=== PATIENT | female | born 1970 | race Asian ===

== ENCOUNTER 2017-11-20 10:01 | Emergency (ER) | payer MEDICAID ==
[~2017-11-20] VITALS: Ht 160 cm; Wt 72.6 kg
[2017-11-20 10:25] VITALS: BP 140/84
[2017-11-20] MEDS ORDERED: KETOROLAC TROMETH 60MG/2ML VIAL IM ONE (10:30)
== END 2017-11-20 12:17 | disposition home or self-care (01) ==
LOC: ER 10:07
DX: K08.89 Other specified disorders of teeth and supporting structures (principal)
CPT/HCPCS: 96372; 99283; J1885

== ENCOUNTER 2018-01-21 11:35 | Emergency (ER) | payer MEDICAID ==
[~2018-01-21] VITALS: Ht 160 cm; Wt 74.8 kg
[2018-01-21] MEDS ORDERED: KETOROLAC TROMETH 60MG/2ML VIAL IM ONE (12:15)
[2018-01-21 12:33] VITALS: BP 150/57
== END 2018-01-21 13:28 | disposition home or self-care (01) ==
LOC: ER 11:35
DX: K08.89 Other specified disorders of teeth and supporting structures (principal)
CPT/HCPCS: 96372; 99283; J1885